=== PATIENT | female | born 1980 | race Caucasian/White ===

== ENCOUNTER 2016-10-21 10:45 | Emergency (ER) | payer MEDICARE, OTHER | END 2016-10-21 13:30 | disposition left against medical advice (07) | LOC: ER 10:45 | DX: J44.1 Chronic obstructive pulmonary disease with (acute) exacerbation (principal); F17.210 Nicotine dependence, cigarettes, uncomplicated; Z98.890 Other specified postprocedural states; Z79.899 Other long term (current) drug therapy | CPT/HCPCS: 36415; 96374 ==

== ENCOUNTER 2016-12-21 21:12 | Emergency (ER) | payer MEDICARE, OTHER | END 2016-12-21 22:12 | disposition home or self-care (01) | LOC: ER 21:12 | DX: R00.2 Palpitations (principal); R06.02 Shortness of breath; J44.9 Chronic obstructive pulmonary disease, unspecified; F17.210 Nicotine dependence, cigarettes, uncomplicated; Z98.890 Other specified postprocedural states; Z79.899 Other long term (current) drug therapy | CPT/HCPCS: 36415 ==

== ENCOUNTER → 2016-12-23 18:04 | Emergency (ER) | payer MEDICARE, OTHER | END | disposition left against medical advice (07) | LOC: ER 18:04 | DX: Z53.21 Procedure and treatment not carried out due to patient leaving prior to being seen by health care provider (principal) ==

== ENCOUNTER 2016-12-29 15:01 | Emergency (ER) | payer MEDICARE, OTHER | END 2016-12-29 17:39 | disposition left against medical advice (07) | LOC: ER 15:01 | DX: K80.20 Calculus of gallbladder without cholecystitis without obstruction (principal); I95.9 Hypotension, unspecified; J44.1 Chronic obstructive pulmonary disease with (acute) exacerbation; R09.02 Hypoxemia; R00.0 Tachycardia, unspecified; R50.9 Fever, unspecified; E66.9 Obesity, unspecified; F17.210 Nicotine dependence, cigarettes, uncomplicated; Z68.42 Body mass index [BMI] 45.0-49.9, adult; Z79.899 Other long term (current) drug therapy; Z99.81 Dependence on supplemental oxygen | CPT/HCPCS: 36415; 87502; 96361; 96374 ==

== ENCOUNTER 2016-12-30 20:07 | Emergency (ER) | payer MEDICARE, OTHER | END 2016-12-30 22:28 | disposition home or self-care (01) | LOC: ER 20:07 | DX: J02.9 Acute pharyngitis, unspecified (principal); J44.9 Chronic obstructive pulmonary disease, unspecified; I10 Essential (primary) hypertension; F17.210 Nicotine dependence, cigarettes, uncomplicated; Z99.81 Dependence on supplemental oxygen; Z79.899 Other long term (current) drug therapy | CPT/HCPCS: 87651; 96374; J1100 ==

== ENCOUNTER 2017-04-01 17:45 | Emergency (ER) | payer MEDICARE, OTHER | END 2017-04-01 18:34 | disposition home or self-care (01) | LOC: ER 17:45 | DX: S76.912A Strain of unspecified muscles, fascia and tendons at thigh level, left thigh, initial encounter (principal); S80.12XA Contusion of left lower leg, initial encounter; W19.XXXA Unspecified fall, initial encounter | CPT/HCPCS: 73552-LT ==

== ENCOUNTER 2017-06-21 15:57 | Emergency (ER) | payer MEDICARE, OTHER | END 2017-06-21 18:10 | disposition left against medical advice (07) | LOC: ER 15:57 | DX: J44.1 Chronic obstructive pulmonary disease with (acute) exacerbation (principal); F17.210 Nicotine dependence, cigarettes, uncomplicated; Z90.49 Acquired absence of other specified parts of digestive tract; Z98.890 Other specified postprocedural states; Z79.899 Other long term (current) drug therapy | CPT/HCPCS: Q9967 ==